=== PATIENT | female | born 1995 | race Caucasian/White ===

== ENCOUNTER 2024-01-19 13:00 | Outpatient (CLI) | payer BC, OTHER | END 2024-01-19 23:59 | disposition home or self-care (01) | LOC: RAD 13:00 | PROVIDERS: ATTEND Obstetrics & Gynecology | DX: O09.91 Supervision of high risk pregnancy, unspecified, first trimester (principal); Z3A.14 14 weeks gestation of pregnancy | CPT/HCPCS: 76801 ==